=== PATIENT | female | born 1955 | race Caucasian/White ===

== ENCOUNTER 2023-09-14 16:35 | Emergency (ER) | payer BC ==
[2023-09-14 19:37] VITALS: BP 167/77
[2023-09-14] MEDS ORDERED: IBUPROFEN 600 MG TABLET PO STA (20:32)
[2023-09-14] MEDS ORDERED: CYCLOBENZAPRINE 10 MG Prepack 2 PO PRN (20:32)
[2023-09-14] MEDS ORDERED: CYCLOBENZAPRINE 10 MG TABLET PO STA (20:32)
[2023-09-14 22:23] VITALS: O2SAT 100
--- NOTE | 2023-09-16 04:28 | ED Physician Documentation ---
PD HPI NECK PAIN - Stated complaint Stated Complaint: NECK PX - Chief complaint Chief Complaint: General - History obtained from History obtained from: Patient - Additional information Additional information: HPI from patient. Patient c/o neck pain, onset yesterday afternoon while driving. Denies injury and there was no inciting event. Onset was gradual, and has been slowly progressing in intensity. The pain initial was at base of occiput but has slowly spread to involve bilateral posterior neck muscles/trapezius area. Pain is distinctly worse with movement in any direction (turning/rotating in either direction, as well as with flexion and extension). She denies fever, sore throat, weakness, numbness. Denies h/o similar symptoms. Review of Systems Constitutional: denies: Fever Throat: denies: Sore throat PD PAST MEDICAL HISTORY - Past Medical History Past Medical History: Yes Endocrine/Autoimmune: HyPOthyroidism - Past Surgical History Past Surgical History: Yes HEENT: Cataracts - Present Medications Home Medications: Ambulatory Orders Medication Instructions Recorded Confirmed Cyclobenzaprine [Flexeril] 10 mg PO TID PRN #14 tablet 09/14/23 [place] 1 drops LEFTEYE TID 09/14/23 Thyroid,Pork [Maple Thyroid] 60 mg PO DAILY 09/14/23 09/14/23 - Allergies Allergies/Adverse Reactions: Allergies Allergy/AdvReac Type Severity Reaction Status Date / Time No Known Drug Allergies Allergy Verified 09/14/23 16:43 - Social History Does the pt smoke?: No Smoking Status: Never smoker Does the pt drink ETOH?: No Does the pt have substance abuse?: No - Immunizations Immunizations are current?: Yes - POLST Patient has POLST: No PD ED PE NORMAL - Vitals Vital signs reviewed: Yes - General General: Alert and oriented X 3, No acute distress (NAD at rest although she is minimizing movement of head from neutral position ), Well developed/nourished - HEENT HEENT: Pharynx benign - Neck Neck: Supple, no meningeal sign, No bony TTP - Respiratory Respiratory: No respiratory distress, Clear bilaterally Results - Vitals Vitals: Oxygen O2 Source Room air PD Medical Decision Making - ED course Complexity details: considered differential, d/w patient ED course: NAD, nontoxic appearance and afebrile. No elements of HPI nor PE to suggest infectious etiology. No injury nor neurologic complaint to indicate need for emergent imaging. Musculoskeletal etiology suspected and testing can be undertaken in outpatient setting if symptoms persist, but she is encouraged to return to ED if symptoms worsen or new/concerning signs/symptoms (such as fever, weakness, numbness, headache). She is given 600mg ibuprofen PO and 10mg flexeril with rx for flexeril electronically submitted to [facility] Departure - Departure Disposition: 01 Home, Self Care Clinical Impression: Neck pain Condition: Good Instructions: ED Neck Pain No Trauma Follow-Up: Kasey Clements [place] [Primary Care Provider] - Prescriptions: Cyclobenzaprine [Flexeril] 10 mg PO TID PRN #14 tablet PRN Reason: Spasms Comments: Based on your description of symptoms and lack of concerning/diagnosis-specific findings on the physical exam, emergent testing is not indicated at this time. However, you should contact your primary care provider's office in the morning to arrange for next available appointment for reevaluation. I electronically submitted a prescription for cyclobenzaprine (muscle relaxant) to the [facility] in [place]. Forms: PCP List Discharge Date/Time: 09/14/23 20:55
== END 2023-09-14 20:55 | disposition home or self-care (01) ==
LOC: ED 16:35
DX: M54.2 Cervicalgia (principal)
CPT/HCPCS: 99282; 99283; A9270